=== PATIENT | male | born 2005 | race Caucasian/White ===

== ENCOUNTER → 2023-07-07 08:40 | Outpatient (BNVA) | payer BC, MEDICAID, SELFPAY | PROVIDERS: Family Provider Family Medicine; Visit Provider Family Medicine | DX: R68.82 Decreased libido (principal); Z86.39 Personal history of other endocrine, nutritional and metabolic disease; R53.83 Other fatigue | CPT/HCPCS: 80053; 84403; 84439; 84443; 85025; 86376 ==